=== PATIENT | female | born 1940 | race Caucasian/White ===

== ENCOUNTER 2016-09-20 20:19 | Emergency (ER) | payer MEDICARE, OTHER ==
[2016-09-20 20:53] LABS: BASOPHIL 0.3 % (0-2); EOSINOPHIL 1.4 % (0-7); HCT 39.2 % (37.0-47.0); HGB 13.4 g/dl (12.5-16.0); LYMPHOCYTE 35.1 % (15-48); MCH 28.3 pg (25.0-31.0); MCHC 34.2 g/dL (32.0-36.0); MCV 82.9 fL (78.0-100.0); MONOCYTE 13.4 % (0-12); MPV 8.6 fL (6.0-9.5); NEUTROPHIL 49.8 % (41-80); PLT 383 K/uL (150-400); RBC 4.73 M/uL (4.20-5.40); WBC 7.3 K/uL (4.0-10.5)
[2016-09-20 21:03] LABS: INR 0.93 (0.9-1.2); PROTHROMBIN TIME 12.1 SECONDS (11.7-14.0); PTT 29.8 SECONDS (23.2-31.4)
[2016-09-20 21:04] LABS: D-DIMER < 0.27 ug/mLFEU (0.00-0.41)
[2016-09-20 21:07] LABS: ALBUMIN 4.8 g/dL (3.4-4.8); BILIRUBIN - TOTAL 0.3 mg/dL (0.1-1.0); CREATININE 0.6 mg/dL (0.5-1.0); GLOBULIN (CALCULATION) 2.1 g/dL (2.2-4.2); MAGNESIUM 1.64 mg/dL (1.40-2.10); POTASSIUM 3.3 mmol/L (3.5-5.1); TOTAL PROTEIN 6.9 g/dL (6.4-8.3)
[2016-09-20 21:09] LABS: CKMB 3.84 ng/mL (0.97-4.94); MYOGLOBIN 39 ng/mL (26-65); PRO-BNP 199 pg/mL (0-450); TROPONIN T < 0.010 ng/mL
== END 2016-09-21 | disposition home or self-care (01) ==
LOC: FER 20:19
PROVIDERS: Emergency Medicine
DX: R07.9 Chest pain, unspecified (principal); R00.2 Palpitations; I10 Essential (primary) hypertension; E78.5 Hyperlipidemia, unspecified; E07.9 Disorder of thyroid, unspecified; Z79.899 Other long term (current) drug therapy; Z82.49 Family history of ischemic heart disease and other diseases of the circulatory system; Z98.61 Coronary angioplasty status
CPT/HCPCS: 36415; 71010; 80053; 82550; 82553; 83735; 83874; 83880; 84484; 85025; 85379; 85610; 85730; 93005

== ENCOUNTER 2020-10-21 07:44 | Emergency (ER) | payer MEDICARE, OTHER ==
[~2020-10-21 07:44] MED LIST: ASPIRIN CHEWABL81 MG PO; ATIVAN1 MG PO; CELEXA40 MG PO; CHLORTHALIDONE25 MG PO; CLARITIN10 M2 PO; CLARITIN10 MG PO; COZAAR50 MG PO; EVISTA60 MG PO; HYDRALAZINE25 MG PO; K-DUR20 MEQ PO; KEFLEX500 MG PO; KRILL OIL500 MG PO; MELATONIN5 M2 PO; NORVASC 10MG TA10 MG PO; OS-CAL500 MG PO; PERCOCET 5-3251 EACH PO; PREDNISONE 20MG20 MG PO; SYNTHROID100 MCG PO; TESSALON PERLE100 MG PO; VITAMIN D1000 UNI1 PO; ZOCOR20 MG PO
[2020-10-21 08:52] LABS: BASOPHIL 0.8 % (0-2); EOSINOPHIL 0.8 % (0-7); HCT 38.1 % (37.0-47.0); HGB 12.8 g/dl (12.5-16.0); MCHC 33.6 g/dL (32.0-36.0); MCV 86.4 fL (78.0-100.0); MONOCYTE 9.5 % (0-12); NEUTROPHIL 71.6 % (41-80); NRBC 0; PLT 317 K/uL (150-400); RBC 4.41 M/uL (4.20-5.40); RDW 13.8 % (11.5-14.0); WBC 7.2 K/uL (4.0-10.5)
[2020-10-21 09:03] LABS: INR 0.98 (0.9-1.2); PROTHROMBIN TIME 12.3 SECONDS (11.4-13.6)
[2020-10-21 09:09] LABS: ALBUMIN 3.7 g/dL (3.4-5.0); BILIRUBIN - TOTAL 0.4 mg/dL (0.2-1.0); CREATININE 0.64 mg/dL (0.51-0.95); GLOBULIN (CALCULATION) 3.1 g/dL; MAGNESIUM 1.6 mg/dL (1.8-2.4); POTASSIUM 3.6 mmol/L (3.5-5.1); TOTAL PROTEIN 6.8 g/dL (6.4-8.2)
[2020-10-21 09:10] LABS: IRON % SATURATION 17.8 %SAT (20-50)
[2020-10-21 09:42] LABS: BILIRUBIN NEGATIVE (NEGATIVE); BLOOD TRACE-INTACT Ery/uL (NEGATIVE); CLARITY CLEAR (CLEAR); COLOR YELLOW (YELLOW); GLUCOSE (U) NORMAL (NORMAL); LEUKOCYTES NEGATIVE Leu/uL (NEGATIVE); NITRITE NEGATIVE (NEGATIVE); PROTEIN 2+ mg/dL (NEGATIVE); UROBILINOGEN 0.2 mg/dL (0.2-1.0); pH 7.5 (5.0-9.0)
[2020-10-21 09:53] LABS: BACTERIA TRACE
[2020-10-21] MEDS ORDERED: ANTIVERT25 MG PO (10:37)
== END 2020-10-21 10:51 | disposition home or self-care (01) ==
LOC: FER 07:44
PROVIDERS: Emergency Medicine
DX: H81.10 Benign paroxysmal vertigo, unspecified ear (principal); I10 Essential (primary) hypertension; Z79.899 Other long term (current) drug therapy; Z79.82 Long term (current) use of aspirin
CPT/HCPCS: 36415; 70450; 80053; 81001; 83540; 83550; 83735; 85025; 85610; 85730; 93005